=== PATIENT | male | born 1980 | race American Indian/Alaskan Native ===

== ENCOUNTER 2018-12-19 20:33 | Emergency (ER) | payer SELFPAY ==
[2018-12-19] MEDS ORDERED: NACL 0.9% ONE (21:03)
[2018-12-19] MEDS ORDERED: NACL 0.9% 1000 ML 2,000 ML ONE (21:05)
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
[2018-12-19] MEDS ORDERED: NACL 0.9% 1000 ML 4,000 ML ONE (21:24)
[2018-12-20] MEDS ORDERED: ADRENALIN ONE (20:56)
[2018-12-20] MEDS ORDERED: CALCIUM CHLORIDE IV ONE (20:56)
[2018-12-21] MEDS ORDERED: NACL 0.9% IV ONE (21:00)
== END 2018-12-19 21:35 | disposition other institution (70) ==
LOC: EDBD → ED 20:33
DX: S31.109A Unspecified open wound of abdominal wall, unspecified quadrant without penetration into peritoneal cavity, initial encounter (principal); W34.00XA Accidental discharge from unspecified firearms or gun, initial encounter; Y93.89 Activity, other specified; Y92.89 Other specified places as the place of occurrence of the external cause; Y99.8 Other external cause status
CPT/HCPCS: 36430; 71045; 86850; 86900; 86901; 86920; 99285; J7030; P9016; 94002; J0171